=== PATIENT | female | born 1945 | race Caucasian/White ===

== ENCOUNTER 2018-02-25 15:06 | Emergency (ER) | payer MEDICARE ==
[2018-02-25 15:25] VITALS: O2SAT 98
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
[2018-02-25 16:17] VITALS: BP 166/76; PULSE 73
== END 2018-02-25 16:16 | disposition home or self-care (01) ==
LOC: ED 15:06
DX: L89.519 Pressure ulcer of right ankle, unspecified stage (principal); I10 Essential (primary) hypertension
CPT/HCPCS: 99283; A6457